=== PATIENT | male | born 1955 | race Caucasian/White ===

== ENCOUNTER 2017-10-15 19:54 | Inpatient (IN) ==
[2017-10-16 08:00] LABS: Basophils % 0.4 % (0.0-0.8); Eosinophils # 0.4 10*3/uL (0.0-0.87); Eosinophils % 3.5 % (0.00-10.9); Hematocrit 38.9 VOL% (42.0-52.0); Hemoglobin 13.3 GM/DL (14.0-18.0); Immature Granulocytes % 0.6 %; Immature Granulocytes Absolute 0.06 #; Lymphocytes # 3.6 10*3/uL (1.4-4.0); Lymphocytes % 34.7 % (21.2-54.2); Mean Corpuscular HGB Conc 34.2 GM/DL (32-36); Mean Corpuscular Hemoglobin 32 PG (27-34); Mean Corpuscular Volume 93.3 FL (87-102); Mean Platelet Volume 11.9 FL (9.6-12.0); Monocytes # 0.9 10*3/uL (0.11-0.8); Monocytes % 8.3 % (1.7-12.7); Neutrophils # 5.4 10*3/uL (1.4-7.4); Neutrophils % 52.5 % (38.7-73.9); Platelet Count 161 T/CUMM (130-400); Red Blood Count 4.17 MC/CUMM (3.8-5.5); Red Cell Distribution Width 12.3 % (9.3-17.3); White Blood Count 10.3 T/CUMM (4-12)
[2017-10-16 08:32] LABS: Albumin 3.8 G/DL (3.4-5.0); Bilirubin,Total 0.6 MG/DL (0.2-1.0); Calcium 9.1 MG/DL (8.5-10.1); Osmolality,Calculated 277.7 MOS/KG (273-304); Potassium 4.5 MMOL/L (3.5-5.1); Total Protein 7.9 G/DL (6.4-8.3)
[2017-10-16] MEDS ORDERED: CHLORHEXIDINE 4% SOLN 118 ML BOTTLE TOP SCH (09:00)
[2017-10-16] MEDS: ASPIRIN EC 81 MG TABLET PO SCH (09:16)
[2017-10-16] MEDS: LISINOPRIL 20 MG TABLET PO SCH (09:16)
[2017-10-16] MEDS: METOPROLOL TARTRATE 25 MG TABLET PO SCH (09:16)
[2017-10-16] MEDS: CHLORHEXIDINE 0.12% ORAL RINSE 60 ML BOTTLE SWISH/SPIT SCH ×2 (11:41→21:23)
[2017-10-16] MEDS: ENOXAPARIN 40 MG/0.4 ML SYRINGE SUBCUT SCH (16:05)
[2017-10-16] MEDS: ATORVASTATIN 40 MG TABLET PO SCH (21:22)
[2017-10-17] MEDS ORDERED: ENOXAPARIN 40 MG/0.4 ML SYRINGE SUBCUT SCH (01:14)
[2017-10-17] MEDS ORDERED: DIAZEPAM 5 MG TABLET PO ONE (05:30)
[2017-10-17] MEDS: CHLORTHALIDONE 25 MG TABLET PO SCH (08:12)
[2017-10-17] MEDS: METOPROLOL TARTRATE 25 MG TABLET PO SCH (08:12)
[2017-10-17] MEDS: CHLORHEXIDINE 4% SOLN 118 ML BOTTLE TOP SCH ×3 (08:12→21:21)
[2017-10-17] MEDS: ASPIRIN EC 81 MG TABLET PO SCH (08:12)
[2017-10-17] MEDS: LISINOPRIL 20 MG TABLET PO SCH (08:12)
[2017-10-17] MEDS: CHLORHEXIDINE 0.12% ORAL RINSE 60 ML BOTTLE SWISH/SPIT SCH ×2 (08:13→21:21)
[2017-10-17] MEDS: SODIUM CHLORIDE 0.9% 1,000 ML IV SCH (08:29)
[2017-10-17] MEDS: CLORAZEPATE 3.75 MG TABLET PO PRN ×2 (10:02→16:54)
[2017-10-17] MEDS: ENOXAPARIN 40 MG/0.4 ML SYRINGE SUBCUT SCH (15:07)
[2017-10-17] MEDS: ATORVASTATIN 40 MG TABLET PO SCH (21:20)
[2017-10-18 04:44] LABS: ABG Base Excess -0.6 MMOL/L (-2.5-2.5); ABG HCO3 23.9 MMOL/L (20-26); ABG Oxygen Saturation 95.4 % (95-100); ABG PCO2 39.2 MM HG (35-48); ABG PH 7.396 (7.35-7.45); ABG PO2 79.5 MM HG (80-95); ABG TCO2 21.1 MMOL/L (23-27); Allen Test Positive; Pt O2 Delivery Device Room Air
[2017-10-18 04:53] LABS: Basophils % 0.2 % (0.0-0.8); Eosinophils # 0.4 10*3/uL (0.0-0.87); Eosinophils % 3.8 % (0.00-10.9); Hematocrit 38.4 VOL% (42.0-52.0); Hemoglobin 13.2 GM/DL (14.0-18.0); Immature Granulocytes % 0.3 %; Immature Granulocytes Absolute 0.03 #; Lymphocytes # 4.2 10*3/uL (1.4-4.0); Lymphocytes % 38.7 % (21.2-54.2); Mean Corpuscular HGB Conc 34.4 GM/DL (32-36); Mean Corpuscular Hemoglobin 32 PG (27-34); Mean Corpuscular Volume 93.4 FL (87-102); Mean Platelet Volume 11.7 FL (9.6-12.0); Monocytes % 9.6 % (1.7-12.7); Neutrophils # 5.2 10*3/uL (1.4-7.4); Neutrophils % 47.4 % (38.7-73.9); Platelet Count 141 T/CUMM (130-400); Red Blood Count 4.11 MC/CUMM (3.8-5.5); Red Cell Distribution Width 11.9 % (9.3-17.3); White Blood Count 10.9 T/CUMM (4-12)
[2017-10-18] MEDS ORDERED: VANCOMYCIN 1,000 MG VIAL ONE (05:21)
[2017-10-18] MEDS ORDERED: PAPAVERINE 60 MG/2 ML VIAL ONE (05:21)
[2017-10-18] MEDS ORDERED: TISSUE ADHESIVE 1 EACH APPLICATOR TOP ONE (05:21)
[2017-10-18] MEDS ORDERED: FAMOTIDINE 20 MG TABLET PO ONE (05:30)
[2017-10-18 05:31] LABS: Calcium 8.8 MG/DL (8.5-10.1); Osmolality,Calculated 277.7 MOS/KG (273-304); Potassium 4.1 MMOL/L (3.5-5.1)
[2017-10-18 05:33] LABS: PT Patient Result 10.5 SECS; Partial Thromboplastin Time 31.1 SECS (0-40)
[2017-10-18] MEDS: METOPROLOL TARTRATE 25 MG TABLET PO SCH ×2 (05:54→10:14)
[2017-10-18] MEDS: LISINOPRIL 20 MG TABLET PO SCH ×2 (05:54→10:14)
[2017-10-18] MEDS: CHLORTHALIDONE 25 MG TABLET PO SCH ×2 (05:54→10:14)
[2017-10-18] MEDS ORDERED: DIAZEPAM 5 MG TABLET PO ONE (06:00)
[2017-10-18] MEDS ORDERED: CEFUROXIME INJ 1,500 MG in SYRINGE 1 EACH IV ONE (06:00)
[2017-10-18] MEDS ORDERED: HEPARIN/NACL 0.9% 2 UNITS/ML 500 ML IV ONE (06:16)
[2017-10-18] MEDS ORDERED: NITROGLYCERIN DRIP 50 MG/250 ML BOTTLE IV ONE (06:17)
[2017-10-18] MEDS ORDERED: ePHEDrine 50 MG/ML AMP ONE (06:17)
[2017-10-18] MEDS ORDERED: SUFentanil 250 MCG/5 ML AMP ONE (06:17)
[2017-10-18] MEDS ORDERED: MIDAZOLAM 10 MG/2 ML VIAL ONE ×2 (06:17→11:34)
[2017-10-18] MEDS ORDERED: PHENYLEPHRINE 10 MG/1 ML VIAL IV ONE (06:17)
[2017-10-18] MEDS ORDERED: TRANEXAMIC ACID 1,000 MG/10 ML VIAL ONE (06:18)
[2017-10-18 07:44] LABS: ABG Base Excess -3.4 MMOL/L (-2.5-2.5); ABG HCO3 21.6 MMOL/L (20-26); ABG Oxygen Saturation 99.9 % (95-100); ABG PCO2 39.2 MM HG (35-48); ABG PH 7.354 (7.35-7.45); ABG TCO2 19.5 MMOL/L (23-27); Glucose Heart Surgery 141 MG/DL (74-106); Hematocrit Heart Surgery 35.9 PERCENT (42-52); Hemoglobin Heart Surgery 11.7 G/DL (14.0-18.0); Ionized Calcium Arterial 1.15 MMOL/L (1.21-1.46); PCO2 Patient Temp Arterial 39.2 MMHG; PH Patient Temp Arterial 7.354; Patient Temperature 37 CELCIUS; Potassium Heart/CVR 4.1 MMOL/L (3.5-5.1); Sodium Heart/CVR 136 MMOL/L (135-145)
[2017-10-18 08:06] LABS: Amorphous Crystals,Urine Occasional /HPF (Few); Apearance,Urine CLEAR (Clear); Bacteria,Urine Occasional /HPF (Few); Bilirubin,Urine Negative (Negative); Blood, Urine Negative (Negative); Glucose,Urine (UA) Negative (Negative); Hyaline Casts,Urine 21 /LPF (0-3); Ketones,Urine Negative (Negative); Mucus,Urine Occasional /LPF (Occasional); Nitrite,Urine Negative (Negative); Protein,Urine Negative; RBC,Urine <1 /HPF (0-4); Squamous Epithelial Cell,Urine Occasional /HPF (0-10); Urine Color Yellow (Yellow); Urine Specific Gravity 1.015 (1.001-1.035); Urine Urobilinogen < 2.0 EU/DL (0.2-1.0); WBC,Urine 1 /HPF (0-6)
[2017-10-18 09:00] LABS: Hematocrit Heart Surgery 22.4 PERCENT (42-52); Hemoglobin Heart Surgery 7.2 G/DL (14.0-18.0); PCO2 Patient Temp Venous 31.5 MM HG; PH Patient Temp Venous 7.451; PO2 Patient Temp Venous 41.1 MM HG; Potassium Heart/CVR 4.4 MMOL/L (3.5-5.1); VBG Base Excess -1.5 MEQ/L (0-4); VBG Oxygen Saturation 82.2 %; VBG PCO2 34.6 MMHG (41-51); VBG PH 7.422; VBG PO2 47.1 MMHG (17-40)
[2017-10-18 09:29] LABS: Hemoglobin Heart Surgery 8.1 G/DL (14.0-18.0); Potassium Heart/CVR 4.4 MMOL/L (3.5-5.1); VBG Base Excess -2.5 MEQ/L (0-4); VBG HCO3 21.8 MEQ/L (24-28); VBG Oxygen Saturation 84.8 %; VBG PCO2 35.1 MMHG (41-51); VBG PH 7.411; VBG PO2 57.7 MMHG (17-40)
[2017-10-18 09:30] LABS: PCO2 Patient Temp Venous 30.8 MM HG; PH Patient Temp Venous 7.455; PO2 Patient Temp Venous 46.8 MM HG
[2017-10-18 10:02] LABS: Hematocrit Heart Surgery 24.9 PERCENT (42-52); PCO2 Patient Temp Venous 37.2 MM HG; PH Patient Temp Venous 7.387; Potassium Heart/CVR 4.6 MMOL/L (3.5-5.1); VBG Base Excess -2.2 MEQ/L (0-4); VBG HCO3 22.2 MEQ/L (24-28); VBG Oxygen Saturation 72.9 %; VBG PH 7.358; VBG PO2 42.5 MMHG (17-40)
[2017-10-18] MEDS: SODIUM CHLORIDE 0.9% 1,000 ML IV SCH (10:13)
[2017-10-18] MEDS: ASPIRIN EC 81 MG TABLET PO SCH (10:13)
[2017-10-18] MEDS: CHLORHEXIDINE 0.12% ORAL RINSE 60 ML BOTTLE SWISH/SPIT SCH ×2 (10:14→20:27)
[2017-10-18] MEDS ORDERED: THROMBIN TOPICAL (RECOMBINANT) 5,000 UNIT VIAL TOP ONE (10:16)
[2017-10-18] MEDS ORDERED: ALBUMIN 25% 25 GM/100 ML VIAL IV ONE (10:31)
[2017-10-18] MEDS ORDERED: MAGNESIUM SULFATE 1 GM/2 ML VIAL ONE (10:31)
[2017-10-18] MEDS ORDERED: PROTAMINE SULFATE 250 MG/25 ML VIAL IV ONE (10:31)
[2017-10-18] MEDS ORDERED: SODIUM BICARBONATE 50 MEQ/50 ML SYRINGE IV ONE (10:31)
[2017-10-18] MEDS ORDERED: DEXTROSE 5% KCL 20 MEQ 40 MEQ/2,000 ML BAG IV ONE (10:31)
[2017-10-18] MEDS ORDERED: methylPREDNISolone SOD SUC 1,000 MG/8 ML VIAL ONE (10:32)
[2017-10-18] MEDS ORDERED: HEPARIN 10,000 UNIT/10 ML VIAL ONE (10:32)
[2017-10-18] MEDS ORDERED: PROTAMINE SULFATE 50 MG/5 ML VIAL IV ONE (10:32)
[2017-10-18] MEDS ORDERED: HYDROmorphone 2 MG/1 ML VIAL IV ONE (10:32)
[2017-10-18] MEDS ORDERED: FUROSEMIDE 20 MG/2 ML VIAL ONE (10:32)
[2017-10-18] MEDS ORDERED: MANNITOL 12.5 GM/50 ML VIAL IV ONE (10:32)
[2017-10-18 10:37] LABS: ABG Base Excess -0.9 MMOL/L (-2.5-2.5); ABG HCO3 23.7 MMOL/L (20-26); ABG Oxygen Saturation 99.8 % (95-100); ABG PCO2 34.6 MM HG (35-48); ABG TCO2 21.2 MMOL/L (23-27); Glucose Heart Surgery 300 MG/DL (74-106); Hematocrit Heart Surgery 27.5 PERCENT (42-52); Hemoglobin Heart Surgery 8.9 G/DL (14.0-18.0); Ionized Calcium Arterial 1.35 MMOL/L (1.21-1.46); PCO2 Patient Temp Arterial 34.6 MMHG; Patient Temperature 37 CELCIUS; Potassium Heart/CVR 4.1 MMOL/L (3.5-5.1); Sodium Heart/CVR 132 MMOL/L (135-145)
[2017-10-18] MEDS ORDERED: ALBUMIN 5% 12.5 GM/250 ML VIAL IV ONE (10:37)
[2017-10-18] MEDS ORDERED: MORPHINE 10 MG/1 ML VIAL IV PRN (11:24)
[2017-10-18] MEDS ORDERED: MIDAZOLAM 2 MG/2 ML VIAL IV PRN (11:24)
[2017-10-18] MEDS ORDERED: MAGNESIUM SULF RIDER 2 GM in PREMIX 1 EACH IV PRN (11:24)
[2017-10-18] MEDS ORDERED: MAGNESIUM SULF RIDER 4 GM in PREMIX 1 EACH IV PRN (11:24)
[2017-10-18] MEDS ORDERED: MORPHINE 4 MG/1 ML VIAL IV PRN (11:24)
[2017-10-18] MEDS ORDERED: ACETAMINOPHEN 650 MG SUPP RECTAL PRN (11:24)
[2017-10-18] MEDS ORDERED: ONDANSETRON 4 MG/2 ML VIAL IV PRN (11:24)
[2017-10-18] MEDS ORDERED: DEXTROSE 50% 25 GM/50 ML VIAL IV PRN ×3 (11:24→17:03)
[2017-10-18] MEDS ORDERED: INSULIN REGULAR 100 UNIT/ML IV PRN (11:24)
[2017-10-18] MEDS ORDERED: CALCIUM CHLORIDE 1,000 MG/10 ML SYRINGE IV PRN (11:24)
[2017-10-18] MEDS ORDERED: CHLORHEXIDINE 4% SOLN 118 ML BOTTLE TOP PRN (11:24)
[2017-10-18] MEDS ORDERED: INSULIN REGULAR DRIP 100 ML IV SCH (11:30)
[2017-10-18] MEDS ORDERED: METOPROLOL TARTRATE 5 MG/5 ML VIAL IV ONE ×3 (11:34→16:15)
[2017-10-18] MEDS ORDERED: LIDOCAINE 1% 5 ML VIAL ONE (11:34)
[2017-10-18] MEDS ORDERED: SEVOFLURANE 1 UNIT/15 MINUTE INH ONE (11:34)
[2017-10-18] MEDS ORDERED: CALCIUM CHLORIDE 1,000 MG/10 ML VIAL IV ONE (11:34)
[2017-10-18] MEDS ORDERED: SODIUM CHLORIDE 0.9% 1,000 ML IV ONE (11:35)
[2017-10-18] MEDS ORDERED: LACTATED RINGERS 1,000 ML IV ONE (11:35)
[2017-10-18] MEDS ORDERED: SODIUM CHLORIDE 0.9% 100 ML IV ONE (11:35)
[2017-10-18] MEDS ORDERED: SUCCINYLCHOLINE 200 MG/10 ML VIAL ONE (11:35)
[2017-10-18] MEDS ORDERED: ROCURONIUM 100 MG/10 ML VIAL IV ONE (11:35)
[2017-10-18] MEDS ORDERED: ESMOLOL 100 MG/10 ML VIAL IV ONE ×2 (11:40→11:41)
[2017-10-18] MEDS ORDERED: MINERAL OIL/PETROLATUM OPH OINT 3.5 GM TUBE ONE (11:41)
[2017-10-18 12:03] LABS: ABG Base Excess -2.1 MMOL/L (-2.5-2.5); ABG HCO3 22.6 MMOL/L (20-26); ABG Oxygen Saturation 98.4 % (95-100); ABG PCO2 44.4 MM HG (35-48); ABG PH 7.336 (7.35-7.45); ABG TCO2 21.8 MMOL/L (23-27); Glucose Heart Surgery 239 MG/DL (74-106); Hematocrit Heart Surgery 29.8 PERCENT (42-52); Hemoglobin Heart Surgery 9.6 G/DL (14.0-18.0); Potassium Heart/CVR 3.9 MMOL/L (3.5-5.1)
[2017-10-18 12:06] LABS: Basophils % 0.2 % (0.0-0.8); Eosinophils # 0.1 10*3/uL (0.0-0.87); Eosinophils % 0.6 % (0.00-10.9); Hematocrit 26.7 VOL% (42.0-52.0); Hemoglobin 9.4 GM/DL (14.0-18.0); Immature Granulocytes % 0.5 %; Immature Granulocytes Absolute 0.06 #; Lymphocytes # 0.8 10*3/uL (1.4-4.0); Lymphocytes % 7.3 % (21.2-54.2); Mean Corpuscular HGB Conc 35.2 GM/DL (32-36); Mean Corpuscular Hemoglobin 33 PG (27-34); Mean Corpuscular Volume 94.3 FL (87-102); Mean Platelet Volume 11.9 FL (9.6-12.0); Monocytes # 0.5 10*3/uL (0.11-0.8); Neutrophils # 10.1 10*3/uL (1.4-7.4); Neutrophils % 87.4 % (38.7-73.9); Platelet Count 104 T/CUMM (130-400); Red Blood Count 2.83 MC/CUMM (3.8-5.5); Red Cell Distribution Width 12.1 % (9.3-17.3); White Blood Count 11.5 T/CUMM (4-12)
[2017-10-18 12:15] LABS: INR 1.2; PT Patient Result 12.2 SECS
[2017-10-18 12:30] LABS: Blood Urea Nitrogen 21 MG/DL (7-18); Calcium 9.1 MG/DL (8.5-10.1); Glucose 232 MG/DL (74-106); Lactic Acid 3.8 MMOL/L (0.4-2.0); Osmolality,Calculated 284.7 MOS/KG (273-304); Sodium 138 MMOL/L (136-145)
[2017-10-18] MEDS: SODIUM CHLORIDE 0.45% 1,000 ML IV SCH ×3 (13:17→23:49)
[2017-10-18] MEDS: ALBUMIN 5% 12.5 GM in PREMIX 1 EACH IV PRN ×2 (13:18→13:20)
[2017-10-18] MEDS: POTASSIUM CHLORIDE RIDER 20 MEQ in PREMIX 1 EACH IV PRN ×2 (13:32→13:49)
[2017-10-18] MEDS: SODIUM CHLORIDE 0.9% 250 ML IV PRN ×2 (13:35→22:35)
[2017-10-18] MEDS: POTASSIUM CHLORIDE RIDER 10 MEQ in PREMIX 1 EACH IV PRN (14:23)
[2017-10-18] MEDS ORDERED: ASPIRIN CHEW 81 MG TABLET PO ONE (14:35)
[2017-10-18 15:09] LABS: ABG Base Excess -1.6 MMOL/L (-2.5-2.5); ABG HCO3 23.5 MMOL/L (20-26); ABG Oxygen Saturation 96.5 % (95-100); ABG PCO2 41.1 MM HG (35-48); ABG PH 7.375 (7.35-7.45); ABG PO2 102.4 MM HG (80-95); ABG TCO2 24.8 MMOL/L (23-27); Glucose Heart Surgery 211 MG/DL (74-106); Hemoglobin Heart Surgery 9.8 G/DL (14.0-18.0); Potassium Heart/CVR 5.3 MMOL/L (3.5-5.1)
[2017-10-18] MEDS ORDERED: GLUCAGON 1 MG VIAL IM PRN (17:03)
[2017-10-18] MEDS ORDERED: LACTATED RINGERS 500 ML IV ONE (19:10)
[2017-10-18] MEDS: INSULIN REGULAR 100 UNIT/ML SUBCUT SCH ×2 (20:25→23:53)
[2017-10-18] MEDS: CEFUROXIME INJ 1,500 MG in SYRINGE 1 EACH IV SCH (20:27)
[2017-10-19] MEDS: SODIUM CHLORIDE 0.45% 1,000 ML IV SCH ×2 (02:01→09:04)
[2017-10-19 03:22] LABS: Basophils % 0.1 % (0.0-0.8); Hematocrit 23.5 VOL% (42.0-52.0); Hemoglobin 8.1 GM/DL (14.0-18.0); Immature Granulocytes % 0.3 %; Immature Granulocytes Absolute 0.04 #; Lymphocytes # 0.7 10*3/uL (1.4-4.0); Lymphocytes % 6.1 % (21.2-54.2); Mean Corpuscular HGB Conc 34.5 GM/DL (32-36); Mean Corpuscular Hemoglobin 32 PG (27-34); Mean Platelet Volume 12.3 FL (9.6-12.0); Monocytes # 0.8 10*3/uL (0.11-0.8); Monocytes % 6.7 % (1.7-12.7); Neutrophils % 86.8 % (38.7-73.9); Platelet Count 94 T/CUMM (130-400); Red Cell Distribution Width 12.4 % (9.3-17.3); White Blood Count 11.6 T/CUMM (4-12)
[2017-10-19 03:50] LABS: Osmolality,Calculated 287.3 MOS/KG (273-304); Potassium 4.3 MMOL/L (3.5-5.1)
[2017-10-19] MEDS: INSULIN REGULAR 100 UNIT/ML SUBCUT SCH ×5 (04:04→22:07)
[2017-10-19 04:17] LABS: Hypochromasia 1+; Platelet Estimate Decreased
[2017-10-19] MEDS: CEFUROXIME INJ 1,500 MG in SYRINGE 1 EACH IV SCH (09:03)
[2017-10-19] MEDS: ASPIRIN EC 325 MG TABLET PO SCH (09:03)
[2017-10-19] MEDS: METOPROLOL TARTRATE 25 MG TABLET PO SCH ×2 (09:03→21:07)
[2017-10-19] MEDS: FUROSEMIDE 40 MG TABLET PO SCH (09:03)
[2017-10-19] MEDS: PANTOPRAZOLE 40 MG VIAL IV SCH (09:03)
[2017-10-19] MEDS: CHLORHEXIDINE 0.12% ORAL RINSE 60 ML BOTTLE SWISH/SPIT SCH ×2 (09:05→21:11)
[2017-10-19] MEDS: ATORVASTATIN 40 MG TABLET PO SCH (21:07)
[2017-10-20 05:30] LABS: Basophils % 0.1 % (0.0-0.8); Hematocrit 26.5 VOL% (42.0-52.0); Hemoglobin 9.2 GM/DL (14.0-18.0); Immature Granulocytes % 0.5 %; Immature Granulocytes Absolute 0.09 #; Lymphocytes % 12.2 % (21.2-54.2); Mean Corpuscular HGB Conc 34.7 GM/DL (32-36); Mean Corpuscular Hemoglobin 33 PG (27-34); Mean Corpuscular Volume 93.6 FL (87-102); Mean Platelet Volume 12.8 FL (9.6-12.0); Monocytes # 1.6 10*3/uL (0.11-0.8); Monocytes % 9.3 % (1.7-12.7); Neutrophils % 77.9 % (38.7-73.9); Platelet Count 91 T/CUMM (130-400); Red Blood Count 2.83 MC/CUMM (3.8-5.5); Red Cell Distribution Width 13.2 % (9.3-17.3); White Blood Count 16.7 T/CUMM (4-12)
[2017-10-20 05:42] LABS: Calcium 8.6 MG/DL (8.5-10.1); Osmolality,Calculated 277.7 MOS/KG (273-304); Potassium 3.8 MMOL/L (3.5-5.1)
[2017-10-20 06:00] LABS: Hypochromasia 1+; Ovalocytes Slight; Platelet Estimate Decreased
[2017-10-20] MEDS: INSULIN REGULAR 100 UNIT/ML SUBCUT SCH ×5 (06:04→21:09)
[2017-10-20] MEDS: SODIUM CHLORIDE 0.45% 1,000 ML IV SCH (10:03)
[2017-10-20] MEDS: PANTOPRAZOLE 40 MG VIAL IV SCH (10:04)
[2017-10-20] MEDS: METOPROLOL TARTRATE 25 MG TABLET PO SCH ×2 (10:05→21:09)
[2017-10-20] MEDS: CHLORHEXIDINE 0.12% ORAL RINSE 60 ML BOTTLE SWISH/SPIT SCH ×2 (10:05→21:09)
[2017-10-20] MEDS: FUROSEMIDE 40 MG TABLET PO SCH (10:05)
[2017-10-20] MEDS: ASPIRIN EC 325 MG TABLET PO SCH (10:05)
[2017-10-20] MEDS: CEFUROXIME INJ 1,500 MG in SYRINGE 1 EACH IV SCH (10:17)
[2017-10-20] MEDS ORDERED: METOPROLOL TARTRATE 5 MG/5 ML VIAL IV ONE ×2 (16:38→16:41)
[2017-10-20] MEDS: POTASSIUM CHLORIDE RIDER 10 MEQ in PREMIX 1 EACH IV PRN ×2 (21:07→22:35)
[2017-10-20] MEDS: ATORVASTATIN 40 MG TABLET PO SCH (21:09)
[2017-10-21] MEDS: POTASSIUM CHLORIDE RIDER 10 MEQ in PREMIX 1 EACH IV PRN (00:05)
[2017-10-21] MEDS: INSULIN REGULAR 100 UNIT/ML SUBCUT SCH ×6 (01:15→20:37)
[2017-10-21 06:11] LABS: Basophils % 0.2 % (0.0-0.8); Eosinophils # 0.1 10*3/uL (0.0-0.87); Eosinophils % 0.8 % (0.00-10.9); Hematocrit 26.4 VOL% (42.0-52.0); Hemoglobin 9.3 GM/DL (14.0-18.0); Immature Granulocytes % 0.5 %; Immature Granulocytes Absolute 0.06 #; Lymphocytes % 22.9 % (21.2-54.2); Mean Corpuscular HGB Conc 35.2 GM/DL (32-36); Mean Corpuscular Hemoglobin 33 PG (27-34); Mean Corpuscular Volume 92.3 FL (87-102); Mean Platelet Volume 12.7 FL (9.6-12.0); Monocytes # 1.3 10*3/uL (0.11-0.8); Monocytes % 9.6 % (1.7-12.7); Neutrophils # 8.6 10*3/uL (1.4-7.4); Platelet Count 93 T/CUMM (130-400); Red Blood Count 2.86 MC/CUMM (3.8-5.5); Red Cell Distribution Width 12.7 % (9.3-17.3); White Blood Count 13.1 T/CUMM (4-12)
[2017-10-21 06:16] LABS: Calcium 8.5 MG/DL (8.5-10.1); Osmolality,Calculated 276.7 MOS/KG (273-304); Potassium 3.8 MMOL/L (3.5-5.1)
[2017-10-21 06:38] LABS: Hypochromasia 1+; Platelet Estimate Decreased
[2017-10-21 06:39] LABS: Microcytosis Slight
[2017-10-21] MEDS: SODIUM CHLORIDE 0.45% 1,000 ML IV SCH (09:17)
[2017-10-21] MEDS: ASPIRIN EC 325 MG TABLET PO SCH (09:22)
[2017-10-21] MEDS: FUROSEMIDE 40 MG TABLET PO SCH (09:22)
[2017-10-21] MEDS: PANTOPRAZOLE 40 MG VIAL IV SCH (09:22)
[2017-10-21] MEDS: CHLORHEXIDINE 0.12% ORAL RINSE 60 ML BOTTLE SWISH/SPIT SCH ×2 (09:23→20:37)
[2017-10-21] MEDS: METOPROLOL TARTRATE 50 MG TABLET PO SCH ×2 (09:25→20:37)
[2017-10-21] MEDS: DOCUSATE SODIUM 100 MG CAPSULE PO SCH ×2 (15:04→20:37)
[2017-10-21] MEDS: ATORVASTATIN 40 MG TABLET PO SCH (20:37)
[2017-10-22] MEDS: INSULIN REGULAR 100 UNIT/ML SUBCUT SCH ×6 (00:56→20:58)
[2017-10-22] MEDS ORDERED: METOPROLOL TARTRATE 5 MG/5 ML VIAL IV ONE (08:23)
[2017-10-22] MEDS ORDERED: AMIODARONE INJ 150 MG in DEXTROSE 5% 100 ML IV ONE (08:23)
[2017-10-22] MEDS ORDERED: AMIODARONE INJ 450 MG in DEXTROSE 5% 241 ML IV SCH (08:30)
[2017-10-22] MEDS: FUROSEMIDE 40 MG TABLET PO SCH (10:01)
[2017-10-22] MEDS: METOPROLOL TARTRATE 50 MG TABLET PO SCH ×2 (10:01→20:57)
[2017-10-22] MEDS: ASPIRIN EC 325 MG TABLET PO SCH (10:01)
[2017-10-22] MEDS: CHLORHEXIDINE 0.12% ORAL RINSE 60 ML BOTTLE SWISH/SPIT SCH ×2 (10:01→20:58)
[2017-10-22] MEDS: DOCUSATE SODIUM 100 MG CAPSULE PO SCH ×2 (10:01→20:57)
[2017-10-22] MEDS: PANTOPRAZOLE 40 MG VIAL IV SCH (10:01)
[2017-10-22] MEDS: SODIUM CHLORIDE 0.45% 1,000 ML IV SCH (10:15)
[2017-10-22 10:53] LABS: Basophils % 0.1 % (0.0-0.8); Eosinophils # 0.2 10*3/uL (0.0-0.87); Eosinophils % 1.1 % (0.00-10.9); Hematocrit 29.6 VOL% (42.0-52.0); Hemoglobin 10.1 GM/DL (14.0-18.0); Immature Granulocytes % 0.7 %; Lymphocytes # 1.6 10*3/uL (1.4-4.0); Lymphocytes % 11.6 % (21.2-54.2); Mean Corpuscular HGB Conc 34.1 GM/DL (32-36); Mean Corpuscular Hemoglobin 33 PG (27-34); Mean Corpuscular Volume 95.2 FL (87-102); Mean Platelet Volume 12.7 FL (9.6-12.0); Monocytes # 0.9 10*3/uL (0.11-0.8); Monocytes % 6.7 % (1.7-12.7); Neutrophils # 11.1 10*3/uL (1.4-7.4); Neutrophils % 79.8 % (38.7-73.9); Platelet Count 125 T/CUMM (130-400); Red Blood Count 3.11 MC/CUMM (3.8-5.5); Red Cell Distribution Width 12.3 % (9.3-17.3)
[2017-10-22 11:15] LABS: Calcium 8.6 MG/DL (8.5-10.1); Potassium 3.9 MMOL/L (3.5-5.1)
[2017-10-22] MEDS: AMIODARONE INJ 450 MG in DEXTROSE 5% 241 ML IV SCH (18:59)
[2017-10-22] MEDS: ATORVASTATIN 40 MG TABLET PO SCH (20:57)
[2017-10-23] MEDS: INSULIN REGULAR 100 UNIT/ML SUBCUT SCH ×4 (00:33→11:50)
[2017-10-23 05:52] LABS: Basophils % 0.3 % (0.0-0.8); Eosinophils # 0.2 10*3/uL (0.0-0.87); Eosinophils % 5.2 % (0.00-10.9); Hematocrit 56.4 VOL% (42.0-52.0); Hemoglobin 19.5 GM/DL (14.0-18.0); Immature Granulocytes % 0.9 %; Immature Granulocytes Absolute 0.03 #; Lymphocytes # 1.1 10*3/uL (1.4-4.0); Lymphocytes % 30.5 % (21.2-54.2); Mean Corpuscular HGB Conc 34.6 GM/DL (32-36); Mean Corpuscular Hemoglobin 32 PG (27-34); Mean Corpuscular Volume 91.9 FL (87-102); Mean Platelet Volume 12.1 FL (9.6-12.0); Monocytes # 0.2 10*3/uL (0.11-0.8); Monocytes % 6.9 % (1.7-12.7); Neutrophils % 56.2 % (38.7-73.9); Red Blood Count 6.14 MC/CUMM (3.8-5.5); Red Cell Distribution Width 12.4 % (9.3-17.3); White Blood Count 3.5 T/CUMM (4-12)
[2017-10-23 05:56] LABS: Platelet Count 58 T/CUMM (130-400)
[2017-10-23 06:07] LABS: Calcium 8.5 MG/DL (8.5-10.1); Osmolality,Calculated 276.8 MOS/KG (273-304); Potassium 3.2 MMOL/L (3.5-5.1)
[2017-10-23] MEDS: POTASSIUM CHLORIDE RIDER 20 MEQ in PREMIX 1 EACH IV PRN ×2 (06:15→11:15)
[2017-10-23 06:48] LABS: Giant Platelets Few; Platelet Estimate Decreased; Polychromasia Few
[2017-10-23 06:49] LABS: Burr Cells 1+
[2017-10-23] MEDS: METOPROLOL TARTRATE 50 MG TABLET PO SCH (09:45)
[2017-10-23] MEDS: CHLORHEXIDINE 0.12% ORAL RINSE 60 ML BOTTLE SWISH/SPIT SCH (09:45)
[2017-10-23] MEDS: ASPIRIN EC 325 MG TABLET PO SCH (09:45)
[2017-10-23] MEDS: FUROSEMIDE 40 MG TABLET PO SCH (09:45)
[2017-10-23] MEDS: DOCUSATE SODIUM 100 MG CAPSULE PO SCH (09:45)
[2017-10-23] MEDS: SODIUM CHLORIDE 0.45% 1,000 ML IV SCH (11:10)
[2017-10-23] MEDS: PANTOPRAZOLE 40 MG VIAL IV SCH (11:12)
[2017-10-23] MEDS: AMIODARONE INJ 450 MG in DEXTROSE 5% 241 ML IV SCH (11:15)
[2017-10-23] MEDS ORDERED: AMIODARONE 200 MG TABLET PO SCH (11:30)
[2017-10-23 12:02] VITALS: BP 115/64
== END 2017-10-23 14:33 | disposition home health service (06) | DRG 236 ==
LOC: N.TELEN 19:54 → N.2EOUT 19:54 → N.TELEN 19:55 → N.CVR 10-18 09:21 → EDSTATUS 10-18 12:34 → N.CVR 10-19 13:51 → N.TELES 10-19 15:01
PROVIDERS: ADMIT Thoracic Surgery (Cardiothoracic Vascular Surgery); ATTEND Thoracic Surgery (Cardiothoracic Vascular Surgery)